=== PATIENT | female | born 1935 | race Caucasian/White ===

== ENCOUNTER → 2017-03-03 | Outpatient (CLI) | payer MEDICARE, OTHER ==
[~2017-03-03] MED LIST: ASPI-1419 PO; ASPI-1471 PO; ASPI-816 PO; ATOR40TA24 PO; AZIT-17 PO; B2/V1TAB5 PO; BLOO-1503 MC; CEPH500C24 PO; CEPH500T7 PO; CHOL200038 PO; CHOL200074 PO; CLOP75TA PO; CLOP75TA43 PO; CYA1000 PO; CYAN1000 IJ; CYAN1000 IM; CYAN100088 PO; CYAN25005 SL; FERR324T16 PO; FERR325T14 PO; FLU45SYR17 IM; GABA-490 PO; GABA-549 PO; GUAI600T57 PO; KET10 PO; LANC-1120 MC; LEVO25TA61 PO; LEVO50TA86 PO; LISI-362 PO; LOR5/325 PO; MECL25TA9 PO; METF-1 PO; METF-420 PO; METH4TAB66 PO; METO-233 PO; NIAC500C12 PO; NIT4 SL; NYST15OI15 TP; OMEP-114 PO; ONDA4TAB PO; PANT40TA65 PO; PNEU0.5D3 IM; PROM5SYR PO; SIMV-44 PO; [UNRECOGNIZED DRUG - CODE] MC; [UNRECOGNIZED DRUG - OTHER]
== END ==
LOC: LAB 08:00
PROVIDERS: ATTEND Internal Medicine
DX: E53.8 Deficiency of other specified B group vitamins (principal); E11.40 Type 2 diabetes mellitus with diabetic neuropathy, unspecified; E03.9 Hypothyroidism, unspecified
CPT/HCPCS: 36415; 82040; 82247; 82310; 82374; 82435; 82565; 82607; 82947; 83036; 84075; 84132; 84155; 84295; 84443; 84450; 84460; 84520

== ENCOUNTER → 2017-06-28 | Outpatient (CLI) | payer MEDICARE, OTHER ==
[~2017-06-28] MED LIST changes: -ASPI-816 PO; +ASPI-870 PO; +FERR-53 PO; -FERR325T14 PO; +GABA-503 PO; +TRAM-420 PO
[2017-06-28 14:41] LABS: PLATELET COUNT, AUTOMATED 281 K/uL (150-450)
[2017-06-28 14:54] LABS: LDL CHOLESTEROL 45 mg/dl
--- NOTE | 2017-06-28 15:47 | RADIOLOGY IMAGING REPORT ---
FACILITY: [facility] PATIENT NAME: Cammie Tabares : 1935 MR: [id number] V: [id number] EXAM DATE: ORDERING PHYSICIAN: JOY CONCEPCION TECHNOLOGIST: Location: [facility] Patient: Cammie Tabares : 1935 Visit/Account:[id number] Date of Sevice: 06/28/2017 Technique: KNEE 3 VIEW RIGHT HISTORY: right knee pain Comparison studies: None FINDINGS: There is no acute fracture. Degenerative changes are noted within the right knee character ized by tricompartmental osteophytosis. Noted is chondrocalcinosis. No knee joint effusion. IMPRESSION: 1. Degenerative changes as described above. Report Dictated By: Jorje Motley DO at 06/28/2017 3:39 PM Report E-Signed By: Jorje Motley DO at 06/28/2017 3:42 PM WSN:[email or web address]
== END ==
LOC: LAB 14:18
PROVIDERS: ATTEND Internal Medicine
DX: M25.761 Osteophyte, right knee (principal); M11.261 Other chondrocalcinosis, right knee; E11.49 Type 2 diabetes mellitus with other diabetic neurological complication; E03.9 Hypothyroidism, unspecified; I25.10 Atherosclerotic heart disease of native coronary artery without angina pectoris; E53.8 Deficiency of other specified B group vitamins; E78.5 Hyperlipidemia, unspecified; I10 Essential (primary) hypertension
CPT/HCPCS: 36415; 82040; 82247; 82310; 82374; 82435; 82465; 82565; 82947; 83036; 83718; 84075; 84132; 84155; 84295; 84443; 84450; 84460; 84478; 84520; 84550; 85025; 85379; 85651; 86140

== ENCOUNTER → 2018-03-03 | Outpatient (CLI) | payer MEDICARE, OTHER ==
[~2018-03-03] MED LIST changes: +DULO30CA35 PO; -METF-420 PO; +METF-452 PO
[2018-03-03 07:48] LABS: PLATELET COUNT, AUTOMATED 225 K/uL (150-450)
[2018-03-03 08:11] LABS: LDL CHOLESTEROL 23 mg/dl
== END ==
LOC: LAB 07:31
PROVIDERS: ATTEND Internal Medicine
DX: E11.49 Type 2 diabetes mellitus with other diabetic neurological complication (principal); E03.9 Hypothyroidism, unspecified; I25.10 Atherosclerotic heart disease of native coronary artery without angina pectoris; E55.9 Vitamin D deficiency, unspecified; E53.8 Deficiency of other specified B group vitamins; E78.5 Hyperlipidemia, unspecified; M19.90 Unspecified osteoarthritis, unspecified site; I10 Essential (primary) hypertension
CPT/HCPCS: 36415; 81001; 82040; 82043; 82247; 82306; 82310; 82374; 82435; 82465; 82565; 82607; 82746; 82947; 83036; 83718; 84075; 84132; 84155; 84295; 84439; 84443; 84450; 84460; 84478; 84520; 85025

== ENCOUNTER → 2018-06-14 | Outpatient (CLI) | payer MEDICARE, OTHER ==
[~2018-06-14] MED LIST changes: -GABA-503 PO; +GABA-533 PO; +SITA1TBM4 PO
== END ==
LOC: LAB 07:48
PROVIDERS: ATTEND Internal Medicine
DX: E11.9 Type 2 diabetes mellitus without complications (principal)
CPT/HCPCS: 36415; 82040; 82247; 82310; 82374; 82435; 82565; 82947; 83036; 84075; 84132; 84155; 84295; 84450; 84460; 84520

== ENCOUNTER 2018-09-23 19:19 | Emergency (ER) | payer MEDICARE, OTHER ==
--- NOTE | 2018-09-23 19:30 | ER Report ---
History and Physical Time Seen By MD: 19:26 HPI/ROS CHIEF COMPLAINT: Fell, left flank and rib pain, hit head HISTORY OF PRESENT ILLNESS: 80-year-old female with a history of coronary artery disease on aspirin and Plavix. Patient fell 2 days ago onto the floor after turning off the lights in her bedroom. She's complaining of left flank and rib pain extending into her back. She notes that is aggravated with deep inspiration. She notes no shortness of breath. She's had no hemoptysis. Patient also struck the back of her head. REVIEW OF SYSTEMS: Respiratory: No cough, no dyspnea. Cardiovascular: No chest pain, no palpitations. Gastrointestinal: No vomiting, no abdominal pain. Musculoskeletal: No back pain. Allergies: Coded Allergies: No Known Drug Allergies (Unverified , 08/15/12) Home Meds Active Scripts Tramadol Hcl (TRAMADOL HCL) 50 Mg Tablet, 1 TAB PO Q6H, #12 MG TAKE ONE TABLET BY MOUTH EVERY SIX HOURS NEEDED for pain Prov:GLORY MARTINEZ DO 09/23/18 Clopidogrel Bisulfate (CLOPIDOGREL) 75 Mg Tablet, 1 TAB PO QDAY, #90 TAB 1 Refill TAKE ONE TABLET BY MOUTH EVERY DAY Prov:JOY CONCEPCION MD 08/29/18 Lisinopril (LISINOPRIL) 10 Mg Tablet, 1 TAB PO QDAY, #90 TAB 1 Refill Prov:JOY CONCEPCION MD 08/29/18 Blood Sugar Diagnostic, Drum (ACCU-CHEK COMPACT) 1 Each Strip, 1 STRIP MC BID, #100 STRIP 4 Refills Prov:JOY CONCEPCION MD 06/05/18 Lancets (ACCU-CHEK) 1 Each Each, 1 EACH MC BID, #200 3 Refills use twice a day to test blood sugar Prov:JOY CONCEPCION MD 06/02/18 Metoprolol Succinate (TOPROL XL) 50 Mg Tab.er.24h, 1 TAB PO QDAY for 90 Days, #90 TAB 4 Refills TAKE ONE TABLET BY MOUTH EVERY DAY Prov:JOY CONCEPCION MD 05/23/18 Duloxetine Hcl (CYMBALTA) 30 Mg Capsule.dr, 30 MG PO QDAY, #90 CAP 3 Refills Prov:JOY CONCEPCION MD 03/14/18 Sitagliptin Phos/Metformin Hcl (JANUMET XR 50-1,000 MG TABLET) 1 Each Tbmp.24hr, 1 EACH PO BID, #60 TAB 11 Refills Prov:JOY CONCEPCION MD 03/14/18 Gabapentin (GABAPENTIN) 600 Mg Tablet, 600 MG PO TID, #270 TAB 3 Refills Prov:JOY CONCEPCION MD 03/02/18 Pantoprazole Sodium (PANTOPRAZOLE SODIUM) 40 Mg Tablet.dr, 1 TAB PO QDAY, #90 TAB.SR 4 Refills Prov:JOY CONCEPCION MD 07/20/17 Levothyroxine Sodium (LEVOTHYROXINE SODIUM) 50 Mcg Tablet, 50 MCG PO QDAY, #90 TAB 4 Refills Prov:JOY CONCEPCION MD 02/18/17 Atorvastatin Calcium (LIPITOR) 40 Mg Tablet, 1 TAB PO QDAY, #90 TAB 3 Refills Prov:JOY CONCEPCION MD 12/31/16 Cholecalciferol (Vitamin D3) (VITAMIN D3) 2,000 Unit Tablet, 2000 UNIT PO QDAY, #100 TAB Prov:JOY CONCEPCION MD 02/19/16 Reported Medications Cyanocobalamin (Vitamin B-12) (B-12) 1,000 Mcg Tablet.er, 1000 MCG PO QDAY 09/08/16 Nitroglycerin (NITROSTAT) 0.4 Mg Subl, 1 TAB SL Q5MIN 11/19/14 B2/Vit A,C & E/Lut/Zeaxanth/Mn (ICAPS TABLET) 1 Each Tablet.er, 1 TAB PO QDAY 11/19/14 Aspirin (ASPIR 81) 81 Mg Tablet.dr, 81 MG PO QDAY, TAB 11/09/13 Past Medical/Surgical History Past Medical History Neurologic: Reports hx of: migraine (takes tylenol prn. ) neuropathy (in feet and hands but more on left. gabapentin works well. ) vertigo (positional. seen in ER in 04/13. ) Cardiovascular: Reports hx of: coronary artery disease (MD in 98 with 2 stents. 1 stent in . cardiology from [facility].) hyperlipidemia hypertension other CV history (she still does cardiac rehab 3 x week. ) Musculoskeletal: Reports hx of: back pain (lower back often hurts: especially in AM. ) Endocrine: Reports hx of: diabetes type 2 (Dx about 2004. tx with metformin. ) hypothyroidism Hematology/oncology: Reprots hx of: anemia (Hgb 10 and MCV 68 in 2012. cardiol did not want her to have EGD. ) other hematologic history Events: REPORTS HX OF: Other events (Abstracted 05/12. annual exam mid 11/11. ) Past Surgical History HEENT: Reports hx of: cataract extraction (BILATERAL) Gastrointestinal: Reports hx of: cholecystectomy (1979) Patient is a 82-year-old female who came in today for the follow-up of diabetes patient was recently seen by me and underwent labs her blood glucose was 135 and hemoglobin A1c was 7.6 hemoglobin A1c has been increasing she is currently on metformin 1000 mg twice a day Past medical history significant for osteoarthritis she was having pain in her right knee on her last visit at that time she was referred to orthopedic surgeon and received steroid injection which did not help much she also comes in the pain in the other knee and back and legs patient was recently placed on Cymbalta 30 mg daily and that is helping her pain patient has been diagnosed with Vitamin B12 deficiency Her vitamin B12 level was 64 on 11/21/14, the patient was initially treated with B12 injections and then eventually switched to B12 pills she is currently taking vitamin B12 1000 g every day past medical history significant for coronary artery disease and is status post stent placement she is on appropriate medications with aspirin Plavix beta blockers atorvastatin and SHENA inhibitor most recent lipid panel showed LDL cholesterol of 23 Recent labs are showing slightly low vitamin D levels and has been on vitamin D Patient's TSH was slightly elevated in the past but was complaining of fatigue and was placed on levothyroxine and is currently on 50 g daily Reviewed Nurses Notes: Yes Old Medical Records Reviewed: Yes Hx Smoking: No Smoking Status: Never Smoker Exposure to Second Hand Smoke?: No Hx Alcohol Use: No Constitutional Vital Sign - Last 24 Hours 09/23/18 09/23/18 19:30 21:37 Temp 98.7 Pulse 94 83 Resp 20 B/P (MAP) 128/108 112/58 (76) Pulse Ox 90 90 O2 Delivery Room Air Physical Exam General Appearance: The patient is alert, has no immediate need for airway protection and no current signs of toxicity. Vital signs stable, afebrile, pulse ox normal, palpation of the head and neck reveal no tenderness or trauma. HEENT: Pupils equal and round no injection. EOMI, PERRLA, oropharynx without dental trauma, facial bones intact on palpation Respiratory: Chest is non tender, lungs are clear to auscultation. There is significant tenderness on the left chest wall. There is no bruising, ecchymosis or crepitus noted. Cardiac: regular rate and rhythm, no murmur Gastrointestinal: Abdomen is soft and non tender, no masses, bowel sounds normal. Musculoskeletal: Neck: Neck is supple and non tender. Extremities have full range of motion and are non tender. Skin: No rashes or lesions. DIFFERENTIAL DIAGNOSIS: After history and physical exam differential diagnosis was considered for fall in the elderly including but not limited to intracranial injury, long bone and pelvic bone fracture, spinal injury, and intrathoracic injury. Medical Decision Making EKG/Imaging Imaging Results: CT scan of the chest, abdomen and pelvis with IV contrast was obtained. The results of the study are EXAMINATION: CT chest, abdomen and pelvis without contrast HISTORY: Fall TECHNIQUE: Noncontrast chest, abdomen and pelvis CT was performed with sagittal and coronal reformations. One of the following dose optimization techniques was utilized in the performance of this exam: automated exposure control; adjustment of the mA and/or kV according to patient size; or use of iterative reconstruction technique. Specific details can be referenced in the facility's radiology CT exam operational policy. COMPARISON: None. FINDINGS: Chest: Lower neck: Normal. Heart /pericardium/aorta/great vessels: Coronary artery stents versus calcifications or both noted. Otherwise normal for age. Mediastinum: Normal. Lymph node assessment: Normal. Pleura: Normal. Lungs: Bilateral lower lobe subsegmental atelectasis. Right upper lobe 3 mm nodule, image 25 right middle lobe eight nodule measures 4 mm, image 43. Chest wall: Normal. Musculoskeletal: No fracture or osseous destruction. Normal vertebral body heights. Normal spinal alignment. Multilevel anterior flowing ossification keeping with idiopathic skeletal hyperostosis. Abdomen/pelvis: Spleen: Normal. Adrenal glands: Normal. Pancreas: Normal. Kidneys: Normal. Gallbladder: Surgically absent. Liver: Normal. Vessels: Normal for age. Lymph node assessment: Normal. Bowel including small bowel, colon and appendix: Normal stomach, normal small bowel. Appendix not identified. Colonic diverticulosis without acute colonic abnormality. Peritoneum / retroperitoneum / mesentery: Normal. Pelvic structures: Normal bladder, normal uterus and normal rectum. No pelvic fluid or adenopathy. Body wall: Normal. Musculoskeletal: No acute finding. Mild convexity right lumbar scoliosis. Transitional lumbosacral anatomy severe L5-S1 disc space degeneration. L2 benign vertebral body hemangioma noted. IMPRESSION: 1. No acute finding in the chest, abdomen or pelvis. 2. Two right-sided pulmonary nodules the largest measures 4 mm. These are statistically postinflammatory but are nonspecific. Follow-up could be utilized based on Fleischner criteria described below. 3. Colonic diverticulosis. 4. Thoracic spine idiopathic skeletal hyperostosis and severe L5-S1 disc space degeneration. The study was read by the radiologist. I viewed the images myself on the PACS system. Results: CT scan of the head without contrast was obtained. The results of the study are no acute traumatic findings. See report. The study was read by the radiologist. I viewed the images myself on the PACS system. ED Course/Re-evaluation ED Course Patient was admitted to an examination room. H&P was done. The differential diagnoses was considered. Patient on Plavix who fell and hit the back of her head. She is also complaining of left rib pain. CT scans of the head and the chest, abdomen and pelvis were performed to rule out occult pathology and injury. CT scans were unremarkable. Patient's reassured, advised to take Tylenol for pain. She's given a limited supply of tramadol to try for additional pain relief if necessary. She is advised to follow-up with her primary care doctor if unimproved in 3-5 days. Decision to Disposition Date: Sep 23, 2018 Decision to Disposition Time: 21:06 Depart Departure Latest Vital Signs Vital Signs Date Time Temp Pulse Resp B/P (MAP) Pulse Ox O2 Delivery O2 Flow Rate FiO2 09/23/18 21:37 83 112/58 (76) 90 09/23/18 19:30 98.7 20 Room Air Impression: Primary Impression: Fall Additional Impressions: Contusion of rib on left side Scalp contusion Condition: Improved Disposition: HOME OR SELF-CARE Referrals: JOY CONCEPCION MD (PCP) New Scripts Tramadol Hcl (TRAMADOL HCL) 50 Mg Tablet 1 TAB PO Q6H, #12 MG TAKE ONE TABLET BY MOUTH EVERY SIX HOURS NEEDED for pain Prov: GLORY MARTINEZ DO 09/23/18 Patient Instructions: Contusion in Adults (ED), Head Injury (ED) Additional Instructions: Take Tylenol as needed for pain relief Follow-up with Dr. Concepcion next week Problem Qualifiers Primary Impression: Fall Encounter type: initial encounter Qualified Codes: W19.XXXA - Unspecified fall, initial encounter Additional Impressions: Contusion of rib on left side Encounter type: initial encounter Qualified Codes: S20.212A - Contusion of left front wall of thorax, initial encounter Scalp contusion Encounter type: initial encounter Qualified Codes: S00.03XA - Contusion of scalp, initial encounter GLORY MARTINEZ DO Sep 23, 2018 19:30
--- NOTE | 2018-09-23 20:45 | RADIOLOGY IMAGING REPORT ---
FACILITY: [facility] [place] PATIENT NAME: Cammie Tabares : 1935 MR: [id number] V: [id number] EXAM DATE: ORDERING PHYSICIAN: GLORY MARTINEZ TECHNOLOGIST: Location: [facility] [place] Patient: Cammie Tabares : 1935 Visit/Account:[id number] Date of Sevice: 09/23/[address] scan without contrast HISTORY: Fall, on Plavix COMPARISONS: Brain MR March 05, 2011 TECHNIQUE: Non-contrast head CT was performed with sagittal and coronal reformations. One of the following dose optimization techniques was utilized in the performance of this exam: autom ated exposure control; adjustment of the mA and/or kV according to patient size; or use of iterative reconstruction technique. Specific details can be referenced in the facility's radiology CT exam ope rational policy. FINDINGS: There is no intracranial hemorrhage, hydrocephalus or midline shift. The basal cisterns, cameron-white differentiation, and convexity sulci are maintained. Cataract postsurgical change and vascular calcif ications noted. Mild patchy white matter hypoattenuation has increased allowing for technique differ ences. The mastoid air cells are clear. The paranasal sinuses are clear. The osseous structures ar e normal. Partially empty sella noted. IMPRESSION: No acute intracranial abnormality. Mild chronic small vessel ischemic change. Report Dictated By: Gallo Lynne MD at 09/23/2018 8:35 PM Report E-Signed By: Gallo Lynne MD at 09/23/2018 8:39 PM WSN:[email or web address]
--- NOTE | 2018-09-23 21:01 | RADIOLOGY IMAGING REPORT ---
FACILITY: [facility] [place] PATIENT NAME: Cammie Tabares : 1935 MR: [id number] V: [id number] EXAM DATE: ORDERING PHYSICIAN: GLORY MARTINEZ TECHNOLOGIST: Location: [facility] Patient: Cammie Tabares : 1935 Visit/Account:[id number] Date of Sevice: 09/23/2018 EXAMINATION: CT chest, abdomen and pelvis without contrast HISTORY: Fall TECHNIQUE: Noncontrast chest, abdomen and pelvis CT was performed with sagittal and coronal reformati ons. One of the following dose optimization techniques was utilized in the performance of this exam: autom ated exposure control; adjustment of the mA and/or kV according to patient size; or use of iterative reconstruction technique. Specific details can be referenced in the facility's radiology CT exam ope rational policy. COMPARISON: None. FINDINGS: Chest: Lower neck: Normal. Heart /pericardium/aorta/great vessels: Coronary artery stents versus calcifications or both noted. Otherwise normal for age. Mediastinum: Normal. Lymph node assessment: Normal. Pleura: Normal. Lungs: Bilateral lower lobe subsegmental atelectasis. Right upper lobe 3 mm nodule, image 25 right middle lobe eight nodule measures 4 mm, image 43. Chest wall: Normal. Musculoskeletal: No fracture or osseous destruction. Normal vertebral body heights. Normal spinal alignment. Multilevel anterior flowing ossification keeping with idiopathic skeletal hyperostosis. Abdomen/pelvis: Spleen: Normal. Adrenal glands: Normal. Pancreas: Normal. Kidneys: Normal. Gallbladder: Surgically absent. Liver: Normal. Vessels: Normal for age. Lymph node assessment: Normal. Bowel including small bowel, colon and appendix: Normal stomach, normal small bowel. Appendix not id entified. Colonic diverticulosis without acute colonic abnormality. Peritoneum / retroperitoneum / mesentery: Normal. Pelvic structures: Normal bladder, normal uterus and normal rectum. No pelvic fluid or adenopathy . Body wall: Normal. Musculoskeletal: No acute finding. Mild convexity right lumbar scoliosis. Transitional lumbosacral anatomy severe L5-S1 disc space degeneration. L2 benign vertebral body hemangioma noted. IMPRESSION: 1. No acute finding in the chest, abdomen or pelvis. 2. Two right-sided pulmonary nodules the largest measures 4 mm. These are statistically postinflamm atory but are nonspecific. Follow-up could be utilized based on Fleischner criteria described below. 3. Colonic diverticulosis. 4. Thoracic spine idiopathic skeletal hyperostosis and severe L5-S1 disc space degeneration. FLEISCHNER SOCIETY FOLLOW-UP GUIDELINES FOR NEWLY DETECTED INCIDENTAL NODULES IN PERSONS 35 YEARS OF AGE OR OLDER. *These recommendations do NOT apply to lung cancer screening, patients with immunosuppression or bishop ents with a known primary malignancy. MULTIPLE SOLID NODULES If nodule size is < 6 mm: * Low risk patient ? No routine follow-up. * High risk patient ? Optional CT at 12 months. If nodule size is 6-8 mm: * Low risk patient ? CT at 3-6 months, then consider CT at 18-24 months if no change. * High risk patient ? CT at 3-6 months, then CT at 18-24 months if no change. If nodule size is > 8 mm: * Low risk patient ? CT at 3-6 months, then consider CT at 18-24 months if no change. * High risk patient ? CT at 3-6 months, then consider CT at 18-24 months if no change. LOW RISK PATIENT: Minimal or absent history of tobacco use and of other known risk factors. HIGH RISK PATIENT: Tobacco use, family history of lung cancer, upper pulmonary lobe location of nodul e, presence of emphysema, pulmonary fibrosis, older age. Gerri H, Jeannie DP, Barbara JM, et al. Guidelines for Management of Incidental Pulmonary Nodules Dete cted on CT Images: From the Fleischner Society 2017. Radiology. Report Dictated By: Gallo Lynne MD at 09/23/2018 8:39 P
[2018-09-23] MEDS ORDERED: traMADol 50 MG TAB TH 2 TAB/BOTTLE PO ONE (21:35)
[2018-09-23] MEDS ORDERED: TRAM-420 PO (21:35)
[2018-09-23 21:37] VITALS: BP 112/58
== END 2018-09-23 21:45 | disposition home or self-care (01) ==
LOC: ER 19:31
DX: S20.212A Contusion of left front wall of thorax, initial encounter (principal); S00.03XA Contusion of scalp, initial encounter
CPT/HCPCS: 70450; 71250; 74176; 99284; A9270; C9399